=== PATIENT | female | born 1990 | race Caucasian/White ===

== ENCOUNTER 2018-03-19 20:12 | Inpatient (IN) | payer OTHER ==
[~2018-03-19] VITALS: Ht 160 cm; Wt 70.8 kg
[2018-03-19] MEDS ORDERED: PRENATAL TABLE1 EAC1 PO (21:28)
== END 2018-03-21 14:22 | disposition home or self-care (01) | DRG 782 ==
LOC: OBS/DEL 20:12 → LDR 03-20 11:21
PROC: BY4FZZZ Ultrasonography of Third Trimester, Single Fetus (ICD-10-PCS; principal; 2018-03-20)
PROC: 4A1HXCZ Monitoring of Products of Conception, Cardiac Rate, External Approach (ICD-10-PCS; 2018-03-20)
DX: O41.8X30 Other specified disorders of amniotic fluid and membranes, third trimester, not applicable or unspecified (principal)

== ENCOUNTER 2018-03-25 09:51 | Inpatient (IN) | payer OTHER ==
[~2018-03-25] VITALS: Ht 160 cm; Wt 69.9 kg
[~2018-03-25 09:51] MED LIST: PRENATAL TABLE1 EAC1 PO
== END 2018-03-28 16:01 | disposition home or self-care, planned readmission (81) | DRG 807 ==
LOC: LDR 09:51 → OB/GYN 03-26 03:51
PROC: 10E0XZZ Delivery of Products of Conception, External Approach (ICD-10-PCS; principal; 2018-03-25)
PROC: 4A1HXCZ Monitoring of Products of Conception, Cardiac Rate, External Approach (ICD-10-PCS; 2018-03-25)
DX: O42.02 Full-term premature rupture of membranes, onset of labor within 24 hours of rupture (principal); Z37.0 Single live birth; Z3A.38 38 weeks gestation of pregnancy